=== PATIENT | male | born 1950 ===

== ENCOUNTER 2025-03-14 05:00 | Outpatient (RCR) | payer MEDICARE, SELFPAY | END 2025-04-13 23:59 | disposition home or self-care (01) | LOC: GPT 05:00 | PROVIDERS: Visit Provider Physician Assistant | DX: S53.402D Unspecified sprain of left elbow, subsequent encounter (principal); X58.XXXD Exposure to other specified factors, subsequent encounter | CPT/HCPCS: 97110; 97161 ==

== ENCOUNTER 2025-04-14 05:00 | Outpatient (RCR) | payer MEDICARE, SELFPAY | END 2025-05-13 23:59 | disposition home or self-care (01) | LOC: GPT 05:00 | PROVIDERS: Visit Provider Physician Assistant | DX: S46.812D Strain of other muscles, fascia and tendons at shoulder and upper arm level, left arm, subsequent encounter (principal); X58.XXXD Exposure to other specified factors, subsequent encounter | CPT/HCPCS: 97110 ==